=== PATIENT | male | born 1995 | race Caucasian/White ===

== ENCOUNTER 2022-10-17 14:30 | Outpatient (RCR) | payer OTHER, SELFPAY | END 2022-12-19 11:08 | disposition home or self-care (01) | PROVIDERS: PCP Surgery; Visit Provider Orthopaedic Surgery | DX: M25.531 Pain in right wrist (principal); Z51.89 Encounter for other specified aftercare | CPT/HCPCS: 87635; 97033; 97035; 97110; 97140; 97165; 97535; 97760; X5282 ==

== ENCOUNTER 2022-12-13 15:04 | Emergency (ER) | payer OTHER, SELFPAY ==
[2022-12-13 15:38] VITALS: BP 128/87; PULSE 100; RESP 28; TEMP 37.4; O2SAT 95; BMI 39.6
[2022-12-13 16:36] LABS: PCR FLU A Negative PCR FLU A (Negative); PCR FLU B Negative PCR FLU B (Negative); PCR RSV Negative PCR RSV (Negative); SARS PCR* Negative SARS-CoV-2 (Negative)
--- NOTE | 2022-12-13 18:15 | ED.GENADULT ---
HPI - General Adult General Time Seen by Provider: 18:15 Date Seen: 12/13/22 Chief complaint: Cough Stated complaint: Cough, ear pain, not getting better Time Seen by Provider: 12/13/22 18:11 Source: patient and RN notes reviewed Mode of arrival: ambulatory Limitations: no limitations History of Present Illness HPI narrative: Patient is a 27-year-old male coming in with concern of coughing. He does not believe he has had fevers with this. He is having spells of coughing the point where he feels like he cannot catch his breath. Sometimes it is productive. His coughing is not always bad. He has had some headache, some postnasal drainage. His right ear feels like there is some pressure on it, crackles sometimes. He did have a triple swab done and I am able to tell him that is negative. He has no history of asthma. Patient started with symptoms on Thursday and feels like he is progressing, today is Thursday. Related Data Allergies Allergy/AdvReac Type Severity Reaction Status Date / Time No Known Drug Allergies Allergy Verified 12/13/22 15:37 Review of Systems Status of ROS: Reports: 6 or more systems reviewed and unremarkable except as noted in History and below PFSH PFSH Social History Smoking Status: Former smoker Do you use any of these nicotine containing products: None Second hand tobacco smoke exposure: Yes How often do you have a drink containing alcohol: 2-4 times a month How many standard drinks containing alcohol do you have on a typical day: 1 or 2 How often do you have six or more drinks on one occasion: Never AUDIT-C Alcohol total score: 2 Non-prescribed substance use: denies use service: No Exam Const: Vital Signs, click to edit/add: Vital Signs - 24 hr 12/13/22 15:38 Temperature 99.4 F Pulse Rate [Pulse Oximeter] 100 Respiratory Rate 28 H Blood Pressure [Ri ght Upper Arm] 128/87 Pulse Oximetry 95 Oxygen Delivery Me thod Room Air Documenting provider has reviewed patient's vital signs: yes Common normals: no apparent distress, oriented x3, no limitations, healthy appearing, alert and well nourished General appearance: cooperative, comfortable, well kempt and well developed HENMT: Common normals: normocephalic, head/scalp atraumatic, hearing grossly normal bilaterally, external ears normal, EAC's normal, TM's normal bilaterally, external nose normal, nasal mucous membranes and turbinates normal, moist oral mucous membranes, oropharynx normal, dentition normal and gingiva normal Head and scalp: normocephalic and atraumatic Nose: external nose normal and nasal mucous membranes and turbinates normal External ear: external ears normal External auditory canal: EAC's normal Tympanic membrane: TM's normal bilaterally Eye: Common normals: PERRL, EOMs intact bilaterally, conjunctivae normal and no scleral icterus Conjunctiva: conjunctiva(e) normal Pupil: PERRL Neck & C-Spine: Common normals: full ROM, no lymphadenopathy, supple, no meningeal signs and no JVD Resp: Common normals: normal respiratory effort, no retractions, no use of accessory muscles and clear to auscultation bilaterally Auscultation: clear to auscultation bilaterally Cardio: Common normals: no JVD, regular rate, regular rhythm, S1 normal heart sound, S2 normal heart sound, no gallops, no clicks and no murmurs Rate: regular rate Rhythm: regular rhythm Heart sounds: S1 normal and S2 normal Neuro: Common normals: oriented x3 Sensorium/orientation: alert Meningeal signs: no meningeal signs Psych: Appearance: well kempt Course Course Hospital Course: Reviewed with patient that with the negative triple swab, symptoms just starting this week, believe that this is more likely to be viral. Discussed options of proceeding with a CBC and a chest x-ray to further work this up. He would like to do that. Vital Signs Vital signs: Initial Vital Signs Temperature 99.4 F 12/13/22 15:38 Temperature Source Temporal Artery Scan 12/13/22 15:38 Pulse Rate 100 12/13/22 15:38 Pulse Rhythm 12/13/22 15:38 Respiratory Rate 28 H 12/13/22 15:38 Blood Pressure 128/87 12/13/22 15:38 Blood Pressure Mean 100 12/13/22 15:38 Blood Pressure Position Sitting 12/13/22 15:38 Pulse Oximetry 95 12/13/22 15:38 Oxygen Delivery Method 12/13/22 15:38 Vital Signs Temperature 99.4 F 12/13/22 15:38 Pulse Rate 100 12/13/22 15:38 Respiratory Rate 28 H 12/13/22 15:38 Blood Pressure 128/87 12/13/22 15:38 Pulse Oximetry 95 12/13/22 15:38 Oxygen Delivery Method 12/13/22 15:38 Temperature 99.4 F 12/13/22 15:38 Pulse Rate 100 12/13/22 15:38 Respiratory Rate 28 H 12/13/22 15:38 Blood Pressure 128/87 12/13/22 15:38 Pulse Oximetry 95 12/13/22 15:38 Oxygen Delivery Method 12/13/22 15:38 Medical Decision Making Lab Data Lab results reviewed: Yes I reviewed the patient's lab results Labs: Lab Results 12/13/22 12/13/22 Range/Units 15:46 18:30 WBC 4.65 (4.50-11.00) K/uL RBC 4.90 (4.30-5.90) m/uL Hgb 14.5 (13.5-17.5) gm/dL Hct 43.4 (37.0-53.0) % MCV 89 (80-100) fL MCH 30 (26-34) pg MCHC 33 (32-36) gm/dL RDW Coeff of Sidra 13.7 (11.5-15.5) % Plt Count 267 (140-440) K/uL Neut % (Auto) 56.5 (42.0-72.0) % Lymph % (Auto) 26.7 (20-44) % [place] % (Auto) 9.2 (0.0-11.0) % Eos % (Auto) 6.5 (0.0-7.0) % Baso % (Auto) 0.9 (0.0-3.0) % Neut # (Auto) 2.63 (1.7-7.0) K/uL Lymph # (Auto) 1.24 (0.90-2.90) K/uL Socorro # (Auto) 0.40 (0.00-0.90) K/UL Eos # (Auto) 0.30 (0.00-0.50) K/uL Baso # (Auto) 0.04 (0.00-0.30) K/uL SARS-CoV-2 (PCR) Negative SARS-CoV-2 (Negative) Influenza Type A (PCR) Negative PCR FLU A (Negative) Influenza Type B (PCR) Negative PCR FLU B (Negative) RSV (PCR) Negative PCR RSV (Negative) Imaging Data Chest x-ray: Attestation: I have reviewed the pertinent imaging results. Radiologist's impression: Patient: BOBBY ROMANO Facility:?[facility] Patient ID:?[id number] Site Patient ID:?[id number]. Site :?[id number] Study:?XRay Chest -12/13/2022 6:40:41 PM Ordering Physician:Martín Pollard Final Report: HISTORY: Cough. TECHNIQUE: Two-view chest. COMPARISON: None. FINDINGS: Patchy indistinct it opacities in the left lung base. Prominent interstitium bilaterally. No pleural effusion or pneumothorax. Pulmonary vasculature and cardiomediastinal silhouette are unremarkable. IMPRESSION: Patchy left basilar opacities from atelectasis or airspace disease such as pneumonia. Dictated by James Morales MD @ 12/13/2022 6:56:51 PM Critical Care Time Critical Care Time Critical Care Time: No Discharge Plan Discharge Clinical Impression: Community acquired pneumonia Patient Disposition: Home, Self-Care Condition: Stable Instructions: Community Acquired Pneumonia (ED) Additional Instructions: Start oral antibiotics tonight and take as prescribed. I have written for doxycycline, you are to take 1 pill twice a day for 10 days. Can use [id number] cough and cold medicines as needed to help with symptom control. If you are not improving over the next week, feel you are worsening at any point or becoming more ill, please seek re-evaluation. Activity Level: Activity as Tolerated Follow Up/Referrals: Mark Olivo MD [Primary Care Provider] - Stand Alone Forms: [employer] Info Instructions
--- NOTE | 2022-12-13 18:20 | CRLHL7_ITS ---
For Patients: As a result of the Century Cures Act, medical imaging exams and procedure reports are released immediately into your electronic medical record. You may view this report before your referring provider. If you have questions, please contact your health care provider. HISTORY: Cough. TECHNIQUE: Two-view chest. COMPARISON: None. FINDINGS: Patchy indistinct it opacities in the left lung base. Prominent interstitium bilaterally. No pleural effusion or pneumothorax. Pulmonary vasculature and cardiomediastinal silhouette are unremarkable. IMPRESSION: Patchy left basilar opacities from atelectasis or airspace disease such as pneumonia. Dictated by James Morales MD @ 12/13/2022 6:56:51 PM (Electronically Signed)
[2022-12-13 18:41] LABS: Basophils Absolute Auto 0.04 K/uL (0.00-0.30); Basophils Percent Auto 0.9 % (0.0-3.0); Eosinophils Percent Auto 6.5 % (0.0-7.0); Hematocrit 43.4 % (37.0-53.0); Hemoglobin* 14.5 gm/dL (13.5-17.5); Immature Granulocytes Abs Auto 0.01 K/uL (0.00-0.30); Immature Granulocytes Pct Auto 0.2 %; Lymphocytes Absolute Auto 1.24 K/uL (0.90-2.90); Lymphocytes Percent Auto 26.7 % (20-44); Mean Corpuscular HGB Conc 33 gm/dL (32-36); Mean Corpuscular Hemoglobin 30 pg (26-34); Mean Corpuscular Volume 89 fL (80-100); Monocytes Percent Auto 9.2 % (0.0-11.0); Neutrophils Absolute Auto 2.63 K/uL (1.7-7.0); Neutrophils Percent Auto 56.5 % (42.0-72.0); Platelet Count* 267 K/uL (140-440); RDW Coefficient of Variation % 13.7 % (11.5-15.5); White Blood Count* 4.65 K/uL (4.50-11.00)
[2022-12-13 18:43] LABS: Slide Review Reflex No
[2022-12-13 19:18] VITALS: BP 128/87; PULSE 100; RESP 28; TEMP 37.4
== END 2022-12-13 19:18 | disposition home or self-care (01) ==
PROVIDERS: Emergency Provider Family Medicine; PCP Surgery
DX: J18.9 Pneumonia, unspecified organism (principal)
CPT/HCPCS: 36415; 71046; 85025; 87502; 87634; 87635; 99283; 99284

== ENCOUNTER 2023-01-21 13:21 | Emergency (ER) | payer OTHER, SELFPAY ==
--- NOTE | 2023-01-21 13:22 | CRLHL7_ITS ---
For Patients: As a result of the Cures Act, medical imaging exams and procedure reports are released immediately into your electronic medical record. You may view this report before your referring provider. If you have questions, please contact your health care provider. Indication: Pain Technique: Two views Comparison: None Findings: Bones: Alignment is normal. No fractures or bone lesions. Joint spaces: Unremarkable. Soft tissues: Lateral soft tissue swelling. Dictated by Riki Correa MD @ 01/21/2023 2:36:51 PM (Electronically Signed)
[2023-01-21 13:23] VITALS: BP 143/87; PULSE 77; RESP 18; TEMP 36.1; O2SAT 98; BMI 36.9
--- NOTE | 2023-01-21 13:31 | ED.GENADULT ---
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 He has developed some pain in his ankle and swelling. He does not recall an injury or trauma. He does stand on his feet quite a bit. He has had no calf pain or leg pain, no bleeding or clotting problems. He has history of sleep apnea but otherwise is quite healthy. She denies fever chills cough chest pain breathing issue. Related Data Home Medications Medication Instructions Recorded Confirmed No Known Home Medications 01/21/23 01/21/23 Allergies Allergy/AdvReac Type Severity Reaction Status Date / Time No Known Drug Allergies Allergy Unverified 01/21/23 13:15 Review of Systems Status of ROS: Reports: 6 or more systems reviewed and unremarkable except as noted in History and below PFSH PFS Social History Smoking Status: Former smoker Do you use any of these nicotine containing products: None Second hand tobacco smoke exposure: Yes How often do you have a drink containing alcohol: 2-4 times a month How many standard drinks containing alcohol do you have on a typical day: 1 or 2 How often do you have six or more drinks on one occasion: Never AUDIT-C Alcohol total score: 2 Non-prescribed substance use: denies use service: No Exam Narrative: Exam Narrative: Objective: Vital signs unremarkable PARRISH's no apparent distress, he is his usual jovial self. Pulses regular Right lower extremity shows some mild soft tissue swelling about the ankle, he has got a little bit of tenderness over his anterior talofibular ligament laterally. There is no calf tenderness or swelling, no edema in his calf or ankle other than swelling over his lateral malleolus malleolus, he has no medial malleolar tenderness. No open wounds, no bruising, no distal CMS issues. Const: Vital Signs, click to edit/add: Vital Signs - 24 hr 01/21/23 13:23 Temperature 96.9 F L Pulse Rate [Pulse Oximeter] 77 Respiratory Rate 18 Blood Pressure [Ri ght Upper Arm] 143/87 H Pulse Oximetry 98 Oxygen Delivery Me thod Room Air Course Vital Signs Vital signs: Initial Vital Signs Temperature 96.9 F L 01/21/23 13:23 Temperature Source Temporal Artery Scan 01/21/23 13:23 Pulse Rate 77 01/21/23 13:23 Pulse Rhythm Regular 01/21/23 13:23 Pulse Strength 3+ Normal 01/21/23 13:23 Respiratory Rate 18 01/21/23 13:23 Blood Pressure 143/87 H 01/21/23 13:23 Blood Pressure Mean 105 01/21/23 13:23 Blood Pressure Position Semi-Fowlers 01/21/23 13:23 Pulse Oximetry 98 01/21/23 13:23 Oxygen Delivery Method Room Air 01/21/23 13:23 Vital Signs Temperature 96.9 F L 01/21/23 13:23 Pulse Rate 77 01/21/23 13:23 Respiratory Rate 18 01/21/23 13:23 Blood Pressure 143/87 H 01/21/23 13:23 Pulse Oximetry 98 01/21/23 13:23 Oxygen Delivery Method Room Air 01/21/23 13:23 Temperature 96.9 F L 01/21/23 13:23 Pulse Rate 77 01/21/23 13:23 Respiratory Rate 18 01/21/23 13:23 Blood Pressure 143/87 H 01/21/23 13:23 Pulse Oximetry 98 01/21/23 13:23 Oxygen Delivery Method Room Air 01/21/23 13:23 Medical Decision Making MDM Narrative Medical decision making narrative: 27-year-old white male with right ankle tenderness and swelling consistent with overuse type injury or inflammation. He has no history of a significant injury. It does not appear like a gouty flare as there is no warmth erythema. I suspect he may have an overuse injury or simply tweaked his ankle and had some swelling and now it has persisted. Would recommend to be off his feet for the next few days will write a note for work that he should be off until next Thursday, gel splint, at icing elevation and ibuprofen or Aleve as needed. Follow up with primary care in the next 3-4 days as needed, certainly sooner if changes or concerns return to ED. he has mom were comfortable plan Discharge Plan Discharge Clinical Impression: Acute ankle pain Patient Disposition: Home w/ Parent or Adult Condition: Stable Additional Instructions: Recommend an ankle splint, icing on a regular basis over the next couple of days, light activity, recommend off work until next Thursday. Advil or Aleve as needed for discomfort and swelling. Follow-up with primary care next week if not improving, return to ED sooner worsening or concerns Activity Level: Light activity Discharge Diet: Regular Prescriptions: No Action No Known Home Medications Follow Up/Referrals: Mark Olivo MD [Primary Care Provider] - Stand Alone Forms: [employer] Info Instructions
== END 2023-01-21 14:07 | disposition home or self-care (01) ==
LOC: ED 13:49
PROVIDERS: Emergency Provider Family Medicine; PCP Surgery
DX: M25.571 Pain in right ankle and joints of right foot (principal); M70.871 Other soft tissue disorders related to use, overuse and pressure, right ankle and foot
CPT/HCPCS: 73600; 99283

== ENCOUNTER 2025-05-06 21:42 | Emergency (ER) | payer OTHER, SELFPAY ==
--- OUTSIDE RECORDS SUMMARY | 2025-05-06 21:47 | XMS_ITS | Clinical Summary ---
Author Organization [facility] Address [address] [place] [id number] Care Team Providers Care Director Acute Name Role Phone Mark Olivo MD Primary Care Provider [phone] Juancarlos Kelly MD Unavailable Mayi Rios Unavailable [phone] Unavailable Allergies Active Allergy Reactions Criticality Noted Date Comments Hvcfxdsec-Rxx-Ty-Karlos taminophen Throat Swelling/Closing 11/03/2011 Generic nyquil, swollen uvula Medications BiPapIndication s:PRAMOD (obstructive sleep apnea) BIPAP machine for home use at pressure: 11/7 S , nasal mask x1/3month with nasal pillows x 2/mo 1 Each 11 08/18/2022 Active CPAPIndications :PRAMOD (obstructive sleep apnea) CPAP machine for home use at pressure 8cmw, nasal mask x1/3month with nasal cushion x2/mo 1 Each 11 11/11/2022 Active Active Problems Problem Noted Date Diagnosed Date History of wrist fracture 09/19/2022 Right DRUJ pain 09/19/2022 PRAMOD 01/12/2017 AHI-34 01/26/2017 Overview (01/26/2017): centrals were > 5 / hr Central sleep apnea- 01/12/2017 RENEE- 15 7 Tonsillar hypertrophy 01/26/2017 Encounters Date Type Department Care Team Description 04/28/2025 8:30 AM CDT Office Visit [facility] [address] [place], [place] [id number] Juancarlos Kelly MD Sleep Follow-up 04/28/2025 Travel from Last 3 Months Immunizations Immunization Administration Dates Next Due AMB Influenza, IIV4 PF (=>6 mos Flulaval,Fluzone Fluarix)(Flu Clinic Only) 08/18/2018 COVID-19 vaccine (DAQRI NTech 30mcg/0.3mL) PF, MDV 10/30/2020,10/10/2020 DTP-HIB 05/06/1995, 4,1993,09/04 DTaP 08/01/1999 Hepatitis A (Peds) 06/13/2009 Hepatitis B (Peds) 08/20/1997,11/25/1995, 995 Hepatitis B, Unspecified 11/25/1995 Influenza RIV4 (Age 18+ Year s) PRESERV FREE 07/20/2019 Influenza Virus, Unspecified 07/27/2018,08/19/20 15 Influenza, IIV3 (Age 6-35 mos) 07/25/2020 Influenza, IIV3 (Age >=3 years) 08/04/2024,09/18 Influenza, IIV4 07/14/2023, 2,08/05/2017,08/28,09/04/2015 Influenza, IIV4 (=>6mos) MDV 07/17/2021 MENINGOCOCCAL VACCINE 2 VIAL 2MO-55YO (MENVEO) 06/09/2014 MMR 02/24/2001,05/06/1995 Meningococcal Vaccine (Menactra) 06/13/2009 Oral Polio Vaccine 08/01/1999, 5,1993,09/04 Td (Age >=7 Years) 05/26/2005 Td, Preservative Free (age >= 7 Years) 5 Tdap 01/08/2022,11/03/2011 Family History Medical History Relation Name Comments Cancer-breast Maternal Grandmother Cancer Paternal Grandfather Cancer-colon No Family History Relation Name Status Comments Maternal Grandmother Paternal Grandfather Social History Tobacco Use Types Packs/Day Years Used Date Smoking Tobacco: Every Day Cigarettes 0.5 2 Smokeless Tobacco: Never Tobacco Cessation:Ready to Q uit: Not Asked; Counseling Given: Not Answered Alcohol Use Standard Drinks/Week Comments Yes 0 (1 standard drink = 0.6 oz pur e alcohol) lightly PHQ-2 Answer Date Recorded PHQ-2 TOTAL SCORE 0 01/16/2025 Social Connections Answer Date Recorded Do you often feel lonely or isolated from those around you? 0 01/16/2025 Alcohol Use Answer Date Recorded How often do you have a drink containing alcohol ? 1 08/14/2022 How many drinks containing a lcohol do you have on a typical day when you are drinking? 0 08/14/2022 How often do you have five or more drinks on one occasion? 1 08/14/2022 Financial Resource Strain Answer Date R ecorded Difficulty of Paying Living Expenses 3 01/16/2025 Difficulty of Paying Living Expenses Not on file 01/16/2025 Food Insecurity Answer Date Recorded Do you worry your food will run out before you are able to buy more? 1 01/16/2025 Transportation Needs Answer Date Record ed Does lack of transportation keep you from medica l appointments? 1 01/16/2025 Does lack of transportation keep you from work, meetings or getting things that you need? 1 01/16/2025 Housing Stability Answer Date Recorded What is your housing situation today? 1 01/16/2025 Utilities Answer Date Recorded Do you have trouble paying f or utilities (for example, heat, electricity, water, phone)? 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 Gender Identity Not on file Sexual Orientation Not on file Obstetrics History Last Filed Vital Signs Vital Sign Reading Time Taken Comments Blood Pressure 132/87 04/28/2025 8:30 AM CDT Pulse 63 04/28/2025 8:30 AM CDT Temperature 37.3 C (99.2 F) 01/08/2022 8:53 AM CDT Respiratory Rate 14 04/02/2017 12:52 PM CDT Oxygen Saturation 99% 04/28/2025 8:30 AM CDT Inhaled Oxygen Concentration - - Weight 130.2 kg (287 lb) 04/28/2025 8:30 AM CDT Height 185.4 cm (6' 1) 04/28/2025 8:30 AM CDT Body Mass Index 37.87 04/28/2025 8:30 AM CDT Plan of Treatment Upcoming Encounters Date Type Department Care Team (Late st Contact Info) Description 05/29/2025 2:15 PM CDT Nurse/Clinic Staff Only [facility] [address] [place] [address] 05/30/2025 8:30 AM CDT Nurse/Clinic Staff Only [facility] [address] [place] [address] 06/02/2025 9:00 AM CDT Telemedicine [address] [phone] Mayi Rios PA [address] [place] [phone] 06/06/2025 9:00 AM CDT Telemedicine [address] [phone] [address] [address] 06/12/2025 8:00 AM CDT Office Visit [facility] [address] [place] [address] Juancarlos Kelly MD [address] [place] [address] Health Maintenance Due Date Last Done Comments Pneumococcal series for age 6-49 (1 of 2 - PCV) 2012 COVID-19 vaccine series ( season) 2024 07/17/2021, 10/30/2020, 10/10/2020 Influenza Vaccine (#1) 2025 , 07/14/2023, 07/16/2022, Additional history exists Depression screening for age 12+ 01/16/2026 01/16/2025, 09/08/2023, 08/18/2022, Additional history exists BMI (ht and wt on same day) for age 18+ 04/28/2026 04/28/2025, 01/16/2025, 09/08/2023, Additional history exists Tetanus booster 01/09/2032 01/08/2022, 10/19, 05/26/2005, Additional history exists Hepatitis B series for 19+ Completed 08/20, 11/25/1995, 11/25/1995, Additional history exists HIV for age 15-65 Completed 08/14/2022 Hepatitis C screening for ag e 18-79 Completed 08/14/2022 Procedures Procedure Name Priority Date/Time Associated Diagnosis Comments ANTI HIV 1/2 Routine 08/14/2022 12:32 PM CDT Screen for STD (sexually transmitted disease) ANTI HCV Routine 08/14/2022 12:32 PM CDT Need for hepatitis C screening test from Last 3 Months or Most Recently Relevant to Health Maintenance Results * ANTI HCV (08/14/2022 12:32 PM CDT) Pathologist [facility] HEPATITIS C ANTIBODY Non-React ruslan Non-React ruslan 08/16/2022 6:38 PM CDT [facility] Comment:Antibodies to HCV no t detected; does not exclude the possibility of exposure to HCV. Blood BLOOD SPECIMEN / Unknown Venipuncture / Unknown 08/14/2022 12:32 PM CDT 08/14/2022 12:36 PM CDT us Mark Olivo MD SEND OUTS Final Resu lt [facility] [address] [place] [address], * ANTI HIV 1/2 (08/14/2022 12:32 PM CDT) HIV-1/HIV-2 ANTIBODY Non-Reacti ve Non-Reacti ve 08/16/2022 6:35 PM CDT [facility] Comment:HIV-1 p24 and HIV-1/ HIV-2 Ab not detected. Blood BLOOD SPECIMEN / Unknown Venipuncture / Unknown 08/14/2022 12:32 PM CDT 08/14/2022 12:36 PM CDT us Mark Olivo MD SEND OUTS Final Resu lt [facility] [address] [place] [address], [place] from Last 3 Months or Most Recently Relevant to Health Maintenance Insurance [id number] [facility] Care Teams Director Acute Relationship Specialty Start Date End Date Mark Olivo MD [address] [place] [address] PCP - General Family Practice 10/02/15 Juancarlos Kelly MD [address] [place] [address] Sleep Medicine 07/29/22 Mayi Rios PA [address] [place] [address] Physician Information Tech 05/03/[address] [place] [address] Steel Wheel Engraver 05/03/25
[2025-05-06 21:56] VITALS: BP 119/67; PULSE 116; RESP 16; TEMP 37.6; O2SAT 96; BMI 36.2
--- NOTE | 2025-05-06 22:07 | ED.GENADULT ---
HPI - General Adult General Chief complaint: Sore Throat Stated complaint: sore throat Time Seen by Provider: 05/06/25 22:02 History of Present Illness HPI narrative: Patient is a 29-year-old gentleman who comes in today with a 2 day history of pharyngitis. He lives with his sister who also has strep throat. Patient has had no fevers no chills no night sweats no cough no other ENT symptoms. No weakness. Patient is able to eat and drink without any difficulty. Patient otherwise very healthy. Related Data Allergies Allergy/AdvReac Type Severity Reaction Status Date / Time No Known Drug Allergies Allergy Verified 08/10/23 14:43 Review of Systems Status of ROS: Reports: 10 or more systems reviewed and unremarkable except as noted in History and below PFSH PFSH Social History Smoking Status: Former smoker Do you use any of these nicotine containing products: None Second hand tobacco smoke exposure: Yes How often do you have a drink containing alcohol: 2-4 times a month How many standard drinks containing alcohol do you have on a typical day: 1 or 2 How often do you have six or more drinks on one occasion: Never AUDIT-C Alcohol total score: 2 Non-prescribed substance use: denies use service: No Exam Narrative: Exam Narrative: EXAM GENERAL: Patient appears comfortable and well. EYES: No scleral icterus. ENT: Tympanic membranes and oropharynx normal. THYROID: Significant tonsillar enlargement. I do see exudate but I do not see midline shift. Is anterior cervical lymphadenopathy as well. LYMPH: No supraclavicular or cervical lymphadenopathy. SKIN: Visible skin seen during exam normal or with benign process only. EXT: No dependent lower extremity pedal edema. HEART: Regular rate and rhythm with no murmurs, rubs, or gallops. LUNGS: Clear to auscultation bilaterally with no crackles or wheezes. ABD: Soft, non tender, non distended. PSYCH: Good eye contact, speech is not pressured. Const: Vital Signs, click to edit/add: Vital Signs - 24 hr 05/06/25 21:56 Temperature 99.6 F Pulse Rate [Left P ulse Oximeter] 116 H Respiratory Rate 16 Blood Pressure [Ri ght Upper Arm] 119/67 Pulse Oximetry 96 Oxygen Delivery Me thod Room Air Course Course ED Course: Patient seen examined. Due to the hospital contact with strep throat I did treated with amoxicillin and recommended Tylenol Motrin rest and fluids. He was educated that if his symptoms persist or worsen he may need a CT of his soft tissues neck to rule out abscess. Vital Signs Vital signs: Initial Vital Signs Temperature 99.6 F 05/06/25 21:56 Temperature Source Temporal Artery Scan 05/06/25 21:56 Pulse Rate 116 H 05/06/25 21:56 Pulse Rhythm Regular 05/06/25 21:56 Respiratory Rate 16 05/06/25 21:56 Blood Pressure 119/67 05/06/25 21:56 Blood Pressure Mean 84 05/06/25 21:56 Blood Pressure Position Sitting 05/06/25 21:56 Pulse Oximetry 96 05/06/25 21:56 Oxygen Delivery Method Room Air 05/06/25 21:56 Vital Signs Temperature 99.6 F 05/06/25 21:56 Pulse Rate 116 H 05/06/25 21:56 Respiratory Rate 16 05/06/25 21:56 Blood Pressure 119/67 05/06/25 21:56 Pulse Oximetry 96 05/06/25 21:56 Oxygen Delivery Method Room Air 05/06/25 21:56 Temperature 99.6 F 05/06/25 21:56 Pulse Rate 116 H 05/06/25 21:56 Respiratory Rate 16 05/06/25 21:56 Blood Pressure 119/67 05/06/25 21:56 Pulse Oximetry 96 05/06/25 21:56 Oxygen Delivery Method Room Air 05/06/25 21:56 Discharge Plan Discharge Clinical Impression: Strep throat Patient Disposition: Home, Self-Care Condition: Stable Instructions: Strep Throat (ED) Additional Instructions: Amoxicillin as directed Tylenol 650 4 times a day as needed for fever and pain Ibuprofen 600 4 times a day as needed for fever and pain Drink plenty of fluids Follow-up as needed. Activity Level: No Restrictions Discharge Diet: Regular Follow Up/Referrals: Mark Olivo MD [Primary Care Provider, Family Practice] Stand Alone Forms: MyHealth Info Instructions
--- OUTSIDE RECORDS SUMMARY | 2025-05-06 22:46 | XMS_ITS | CCD ---
Author Organization Unknown Care Team Providers Care Cement Paver Name Role Phone [place], [place] Primary Care Provider Unava ilable Unavailable Chronic Care Management Unavaila ble Summary Purpose [employer] Insurance Providers Payer name Policy type / Coverage type Covered republican ID Effective Begin Date Effective End Date [employer] ([employer]) Commercial Insurance [id number] Unknown Unknown Family History Family History data not found Medication Administered No Medication Administered data Reason For Visit No Reason For Visit data
--- OUTSIDE RECORDS SUMMARY | 2025-05-06 22:46 | XMS_ITS | CCD ---
Author Organization Unknown Care Team Providers Care Squirrel Man Name Role Phone Automobile Appraiser, [place] Primary Care Provider Unava ilable Unavailable Chronic Care Management Unavaila ble Summary Purpose [employer] Insurance Providers Payer name Policy type / Coverage type Covered democrat ID Effective Begin Date Effective End Date [employer] ([facility]) Commercial Insurance [id number] Unknown Unknown Family History Family History data not found Medication Administered No Medication Administered data Reason For Visit No Reason For Visit data
[2025-05-06 23:00] LABS: Strep A DNA Probe* DETECTED (Not Detectd)
--- OUTSIDE RECORDS SUMMARY | 2025-05-06 23:16 | XMS_ITS | CCD ---
Author Organization Unknown Care Team Providers Care Product Manager Name Role Phone Speed Belt Sander Tender, [place] Primary Care Provider Unava ilable Unavailable Chronic Care Management Unavaila ble Summary Purpose [employer] Insurance Providers Payer name Policy type / Coverage type Covered libertarian ID Effective Begin Date Effective End Date [employer] ([facility]) Commercial Insurance [id number] Unknown Unknown Family History Family History data not found Medication Administered No Medication Administered data Reason For Visit No Reason For Visit data
--- OUTSIDE RECORDS SUMMARY | 2025-05-06 23:16 | XMS_ITS | CCD ---
Author Organization Unknown Care Team Providers Care Denture Laboratory Technician Name Role Phone Machinist Apprentice, [place] Primary Care Provider Unava ilable Unavailable Chronic Care Management Unavaila ble Summary Purpose DataExchange Insurance Providers Payer name Policy type / Coverage type Covered libertarian ID Effective Begin Date Effective End Date [employer] ([facility]) Commercial Insurance [id number] Unknown Unknown Family History Family History data not found Medication Administered No Medication Administered data Reason For Visit No Reason For Visit data
== END 2025-05-06 22:21 | disposition home or self-care (01) ==
LOC: ED 22:14
PROVIDERS: Emergency Provider Internal Medicine; PCP Surgery
DX: J02.0 Streptococcal pharyngitis (principal)
CPT/HCPCS: 87651; 99283

== ENCOUNTER 2025-09-12 15:31 | Emergency (ER) | payer OTHER, SELFPAY ==
--- OUTSIDE RECORDS SUMMARY | 2025-09-12 15:34 | XMS_ITS | Clinical Summary ---
Author Organization [facility] Address [address] [place] [address] Care Team Providers Care Acid Bath Mixer Name Role Phone Mark Oilvo MD Primary Care Provider + [phone] Juancarlos Kelly MD Unavailable Mayi Rios Unavailable [phone] Unavailable [phone] Allergies Active Allergy Reactions Criticality Noted Date Comments Feasvlfsp-Jbr-Hk-Karlos taminophen Throat Swelling/Closing 11/03/2011 Generic nyquil, swollen uvula Medications fluticasone (50 mcg per actuation) nasal solution (FLONASE)Indica tions:PRAMOD (obstructive sleep apnea),Allergic rhinitis, unspecified seasonality, unspecified trigger Inhale 1 Zortman into affected nostril(s) once daily. 16 g 5 Active BIPAPIndication s:PRAMOD (obstructive sleep apnea) BIPAP (E0470) machine for home use at pressure: 14/9cmw, Choice of mask (A7030 or A7034) w/full face cushion (A7031) x1/mo, nasal cushion (A7032) x2/mo, or nasal pillows (A7033) x 2/mo; Length of Need: 99 months; Frequency of use: Daily 1 Each 11 5 Active cholecalciferol (VITAMIN D3) 2,000 unit capsuleIndicati ons:Vitamin D deficiency Take 1 Capsule (2,000 units) by mouth once daily. May substitute tablet. 30 Capsule 5 5 Active cholecalciferol (Vitamin D3) 2,000 unit tablet Take 1 Tablet (2,000 units) by mouth once daily. 08/21/20 25 Discontin ued(*Medi cation adjustmen t) Active Problems Problem Noted Date Diagnosed Date History of wrist fracture 09/19/2022 Right DRUJ pain 09/19/2022 PRAMOD 01/12/2017 AHI-34 01/26/2017 Overview (01/26/2017): centrals were > 5 / hr Central sleep apnea- 01/12/2017 RENEE- 15 7 Tonsillar hypertrophy 01/26/2017 Encounters Date Type Department Care Team Description 08/21/2025 4:00 PM TWISTING FRAME CHANGER Telemedicine [address] [phone] Mayi Rios PA Telehealth (No vitals taken); Weight (MWL follow up) 08/21/2025 Travel 08/04/2025 9:00 AM CDT Telemedicine [address] [address] Medical Nutrition Therapy (MWL.2) 07/05/2025 10:00 AM CDT Office Visit [facility] [address] [place] [address] Leda Toledo [facility] Visit 07/04/2025 4:30 PM CDT Office Visit [facility] [address] [place] [address] Mark Olivo MD Concerns (Testing for metanephrines) 07/04/2025 Travel 06/22/2025 9:00 AM CDT Orders Only [facility] [address] [place] [address] Lab, [facility] 06/21/2025 9:00 AM CDT Telemedicine [address] [address] Medical Nutrition Therapy (MWL.1) 06/21/2025 Travel 06/12/2025 8:00 AM CDT Office Visit [facility] [address] [place] [address] Juancarlos Kelly MD Sleep Follow-up (HST/) 06/12/2025 Travel from Last 3 Months Immunizations Immunization Administration Dates Next Due AMB Influenza, IIV4 PF (=>6 mos Flulaval,Fluzone Fluarix)(Flu Clinic Only) 08/18/2018 COVID-19 vaccine (Adapx NTech 30mcg/0.3mL) PF, MDV 10/30/2020,10/10/2020 DTP-HIB 05/06/1995, 4,1993,09/04 DTaP 08/01/1999 Hepatitis A (Peds) 06/13/2009 Hepatitis B (Adult) 11/25/1995 Hepatitis B (Peds) 08/20/1997,11/25/1995, 995 Hepatitis B, Unspecified 11/25/1995 Influenza RIV4 (Age 18+ Year s) PRESERV FREE 07/20/2019 Influenza Virus, Unspecified 07/27/2018,08/19/20 15 Influenza, IIV3 (Age 6-35 mos) 07/25/2020 Influenza, IIV3 (Age >=3 years) 08/04/20 24,07/17/2021,07/25/2020,07/20,07/27/2018,09/18/2016,09/18/2016 ,08/19/2015 Influenza, IIV4 07/14/2023,,08/05/2017,08/28,09/04/2015 Influenza, IIV4 (=>6mos) MDV 07/17/2021 MENINGOCOCCAL VACCINE 2 VIAL 2MO-55YO (MENVEO) 06/09/2014 MMR 02/24/2001,05/06/1995 Meningococcal Vaccine (Menactra) 06/09/2014,05/20 Oral Polio Vaccine 08/01/1999, 5,1993,09/04 Td (Age >=7 Years) 05/26/2005 Td, Preservative Free (age >= 7 Years) 5 Tdap 01/08/2022,11/03/2011 Family History Medical History Relation Name Comments Cancer-breast Maternal Grandmother Cancer Paternal Grandfather Cancer-colon No Family History Relation Name Status Comments Maternal Grandmother Paternal Grandfather Social History Tobacco Use Types Packs/Day Years Used Date Smoking Tobacco: Former Cigarettes 0.5 2 Smokeless Tobacco: Never Tobacco Cessation:Counseling Given: Not Answered Alcohol Use Standard Drinks/Week [...] on file Legal Sex Male 6:43 AM TWISTING FRAME CHANGER Gender Identity Not on file Sexual Orientation Not on file Obstetrics History Last Filed Vital Signs Vital Sign Reading Time Taken Comments Blood Pressure 127/82 07/04/2025 4:33 PM CDT Pulse 86 07/04/2025 4:33 PM CDT Temperature 37.3 C (99.2 F) 01/08/2022 8:53 AM CDT Respiratory Rate 14 04/02/2017 12:52 PM CDT Oxygen Saturation 100% 07/04/2025 4:33 PM CDT Inhaled Oxygen Concentration - - Weight 117.9 kg (260 lb) 08/21/2025 3:00 PM TWISTING FRAME CHANGER Height 188 cm (6' 2.02) 08/21/2025 3:00 PM TWISTING FRAME CHANGER Body Mass Index 33.37 08/21/2025 3:00 PM TWISTING FRAME CHANGER Plan of Treatment Upcoming Encounters Date Type Department Care Team (Late st Contact Info) Description 09/22/2025 9:00 AM TWISTING FRAME CHANGER Telemedicine [address] [place] [address] Lelia Hastings, RD [address] [place] [address] 11/07/2025 3:00 PM TWISTING FRAME CHANGER Telemedicine [address] [place] [address] Mayi Rios PA [address] [place] [address] Health Maintenance Due Date Last Done Comments HPV series for age 9-45 (1 - 3-dose SCDM series) 2020 Influenza Vaccine (#1) 2025 , 07/14/2023, 07/16/2022, Additional history exists Depression screening for age 12+ 01/16/2026 01/16/2025, 09/08/2023, 08/18/2022, Additional history exists BMI (ht and wt on same day) for age 18+ 08/21/2026 08/21/2025, 08/04/2025, 07/04/2025, Additional history exists Tetanus booster 01/09/2032 01/08/2022, 10/19, 05/26/2005, Additional history exists RSV vaccine for adults or (1 - 1-dose 75+ series) 2068 Hepatitis B series for 19+ Completed 08/20, 11/25/1995, 11/25/1995, Additional history exists HIV for age 15-65 Completed 08/14/2022 Hepatitis C screening for age 18-79 Completed 08/14/2022 Pneumococcal series for age 6-49 Aged Out No longer eligible based on patient's age to complete this topic Procedures Procedure Name Priority Date/Time Associated Diagnosis Comments METANEPHRINES FRACTIONATED PLASMA FREE Routine 07/04/2025 4:59 PM CDT Family history of pheochromocytoma VITAMIN B12 Routine 06/22/2025 9:04 AM CDT Class 2 severe obesity with serious comorbidity and body mass index (BMI) of 36.0 to 36.9 in adult, unspecified obesity type (HC) Encounter for vitamin deficiency screening HEMOGLOBIN A1C Routine 06/22/2025 9:04 AM CDT Class 2 severe obesity with serious comorbidity and body mass index (BMI) of 36.0 to 36.9 in adult, unspecified obesity type (HC) HEMOGLOBIN Routine 06/22/2025 9:04 AM CDT Class 2 severe obesity with serious comorbidity and body mass index (BMI) of 36.0 to 36.9 in adult, unspecified obesity type (HC) COMP METABOLIC PANEL Routine 06/22/2025 9:04 AM CDT Class 2 severe obesity with serious comorbidity and body mass index (BMI) of 36.0 to 36.9 in adult, unspecified obesity type (HC) TSH WITH REFLEX Routine 06/22/2025 9:04 AM CDT Class 2 severe obesity with serious comorbidity and body mass index (BMI) of 36.0 to 36.9 in adult, unspecified obesity type (HC) INSULIN Routine 06/22/2025 9:04 AM CDT Class 2 severe obesity with serious comorbidity and body mass index (BMI) of 36.0 to 36.9 in adult, unspecified obesity type (HC) VITAMIN D 25 (DEFICIENCY) Routine 06/22/2025 9:04 AM CDT Class 2 severe obesity with serious comorbidity and body mass index (BMI) of 36.0 to 36.9 in adult, unspecified obesity type (HC) Encounter for vitamin deficiency screening ANTI HIV 1/2 Routine 08/14/2022 12:32 PM CDT Screen for STD (sexually transmitted disease) ANTI HCV Routine 08/14/2022 12:32 PM CDT Need for hepatitis C screening test from Last 3 Months or Most Recently Relevant to Health Maintenance Results * METANEPHRINES FRACTIONATED PLASMA FREE (07/04/2025 4:59 PM CDT) NORMETANEPHRINE, FREE 113 < OR = 148 pg/mL 07/08/2025 5:23 PM CDT [facility] Comment: This test was developed and its analytical performance characteristics have been determined by [facility]. It has not been cleared or approved by the FDA. This assay has been validated pursuant to the CLIA regulations and is used for clinical purposes. METANEPHRINE, FREE 28 < OR = 57 pg/mL 07/08/2025 5:23 PM CDT [facility] Comment: This test was developed and its analytical performance characteristics have been determined by [facility]. It has not been cleared or approved by the FDA. This assay has been validated pursuant to the CLIA regulations and is used for clinical purposes. TOTAL, FREE ([place] + NMN) 141 < OR = 205 pg/mL 07/08/2025 5:23 PM CDT [facility] Comment: Elevations > 4-fold upper reference range: strongly suggestive of a pheochromocytoma(1). Elevations >1 - 4-fold upper reference range: significant but not diagnostic, may be due to medications or stress. Suggest running 24 hr urine fractionated metanephrines and serum Chromogranin A for confirmation. Reference: (1) Samy Frazier et al, Plasma Chromogranin A or Urine Fractionated Metanephrines Follow-Up Testing Improves the Diagnostic Accuracy of Plasma Fractionated Metanephrines for Pheochromocytoma. The Journal of Clinical Endocrinology and Metabolism 93 (1),91-95, 2008. For additional information, please refer to http://education.IPXI.Krugle/faq/MetFractFree (This link is being provided for informational/educational purposes only.) This test was developed and its analytical performance characteristics have been determined by [facility]. It has not been cleared or approved by the FDA. This assay has been validated pursuant to the CLIA regulations and is used for clinical purposes. Blood BLOOD SPECIMEN / Unknown [facility] / Unknown 07/04/2025 4:59 PM CDT 07/04/2025 4:59 PM CDT Mark Olivo MD SEND OUTS Final Resu lt Performing Organization Address [facility] Co de Phone Number [facility] [address] [address], * (ABNORMAL) HEMOGLOBIN A1C (06/22/2025 9:04 AM CDT) HEMOGLOBIN A1C 6.0(H) <5.7 % 06/23/2025 4:19 AM CDT [facility] Comment: For someone without known diabetes, a hemoglobin A1c value between 5.7% and 6.4% is consistent with prediabetes and should be confirmed with a follow-up test. For someone with known diabetes, a value <7% indicates that their diabetes is well controlled. A1c targets should be individualized based on duration of diabetes, age, comorbid conditions, and other considerations. This assay result is consistent with an increased risk of diabetes. Currently, no consensus exists regarding use of hemoglobin A1c for diagnosis of diabetes for children. Blood BLOOD SPECIMEN / Unknown [facility] / Unknown 06/22/2025 9:04 AM CDT 06/22/2025 9:04 AM CDT Narrative [facility] - 06/23/2025 4:19 AM CDT FASTING:UNKNOWN FASTING: UNKNOWN Mayi OQUENDO CHEMISTRY Final Re sult Performing Organization Address [facility]/ZIP Co de Phone Number [facility] [address] [address], [place] [phone] * TSH WITH REFLEX (06/22/2025 9:04 AM CDT) TSH W/REFLEX TO FT4 1.76 0.40 - 4.50 mIU/L 06/23/2025 6:32 AM CDT [facility] Blood BLOOD SPECIMEN / Unknown [facility] / Unknown 06/22/2025 9:04 AM CDT 06/22/2025 9:04 AM CDT Narrative [facility] - 06/23/2025 6:32 AM CDT FASTING:UNKNOWN FASTING: UNKNOWN us Mayi OQUENDO CHEMISTRY Final Re sult [facility] [address] [address], * (ABNORMAL) VITAMIN D 25 (DEFICIENCY) (06/22/2025 9:04 AM CDT) VITAMIN D,25-OH,TOTAL,IA 27(L) 30 - 100 ng/mL 06/23/2025 6:32 AM CDT [facility] Comment: Vitamin D Status 25-OH Vitamin D: Deficiency: <20 ng/mL Insufficiency: 20 - 29 ng/mL Optimal: > or = 30 ng/mL For 25-OH Vitamin D testing on patients on D2-supplementation and patients for whom quantitation of D2 and D3 fractions is required, the Quest[facility]ure[facility](TM) 25-OH VIT D, (D2,D3), LC/MS/MS is recommended: order code 77432 (patients >2yrs). See Note 1 Note 1 For additional information, please refer to http://education.Vive Unique.Krugle/faq/DHI551 (This link is being provided for informational/ educational purposes only.) Blood BLOOD SPECIMEN / Unknown [facility] / Unknown 06/22/2025 9:04 AM CDT 06/22/2025 9:04 AM CDT Narrative [facility] - 06/23/2025 6:32 AM CDT FASTING:UNKNOWN FASTING: UNKNOWN us Mayi OQUENDO SEND OUTS Final Re sult Performing Organization Address [facility] de Phone Number [facility] [address] [address], * HEMOGLOBIN (06/22/2025 9:04 AM CDT) Pathologist [facility] HEMOGLOBIN 15.3 13.2 - 17.1 g/dL 06/23/2025 3:44 AM CDT [facility] MCV 91.3 80.0 - 100.0 fL 06/23/2025 3:44 AM CDT [facility] Blood BLOOD SPECIMEN / Unknown [facility] / Unknown 06/22/2025 9:04 AM CDT 06/22/2025 9:04 AM CDT Narrative [facility] - 06/23/2025 3:44 AM CDT FASTING:UNKNOWN FASTING: UNKNOWN Mayi OQUENDO HEMATOLOGY Final Re sult Performing Organization Address [facility] Phone Number [facility] [address] [address], * (ABNORMAL) INSULIN (06/22/2025 9:04 AM CDT) [facility] INSULIN 23.7(H) uIU/mL 06/23/2025 3:37 PM CDT [facility] Comment: Reference Range < or = 18.4 Risk: Optimal < or = 18.4 Moderate NA High >18.4 Adult cardiovascular event risk category cut points (optimal, moderate, high) are based on Insulin Reference Interval studies performed at [facility] in 2021. Blood BLOOD SPECIMEN / Unknown [facility] / Unknown 06/22/2025 9:04 AM CDT 06/22/2025 9:04 AM CDT Narrative [facility] - 06/23/2025 3:37 PM CDT FASTING:UNKNOWN FASTING: UNKNOWN Mayi OQUENDO SEND OUTS Final Re sult Performing Organization Address [facility] Co de Phone Number [facility] [address] [address], * VITAMIN B12 (06/22/2025 9:04 AM CDT) [facility] VITAMIN B12 319 200 - 1100 pg/mL 06/23/2025 9:21 AM CDT [facility] Comment: Please Note: Although the reference range for vitamin B12 is 200-1100 pg/mL, it has been reported that between 5 and 10% of patients with values between 200 and 400 pg/mL may experience neuropsychiatric and hematologic abnormalities due to occult B12 deficiency; less than 1% of patients with values above 400 pg/mL will have symptoms. Blood BLOOD SPECIMEN / Unknown [facility] / Unknown 06/22/2025 9:04 AM CDT 06/22/2025 9:04 AM CDT Narrative [facility] - 06/23/2025 9:21 AM CDT FASTING:UNKNOWN FASTING: UNKNOWN Mayi OQUENDO CHEMISTRY Final Re sult [facility] [address] [address], * (ABNORMAL) COMP METABOLIC PANEL (06/22/2025 9:04 AM CDT) [facility] SODIUM 139 135 - 146 mmol/L 06/23/2025 5:28 AM CDT [facility] POTASSIUM 4.3 3.5 - 5.3 mmol/L 06/23/2025 5:28 AM CDT [facility] CHLORIDE 102 98 - 110 mmol/L 06/23/2025 5:28 AM CDT [facility] CARBON DIOXIDE 23 20 - 32 mmol/L 06/23/2025 5:28 AM CDT [facility] GLUCOSE 95 65 - 99 mg/dL 06/23/2025 5:28 AM CDT [facility] Comment: Fasting reference interval CALCIUM 9.8 8.6 - 10.3 mg/dL 06/23/2025 5:28 AM CDT [facility] CREATININE 0.99 0.60 - 1.26 mg/dL 06/23/2025 5:28 AM CDT [facility] BUN/CREATININE RATIO SEE NOTE: 6 - 22 (calc) 06/23/2025 5:28 AM CDT [facility] Comment: Not Reported: BUN and Creatinine are within reference range. EGFR 104 > OR = 60 mL/min/1. 73m2 06/23/2025 5:28 AM CDT [facility] ALBUMIN 4.7 3.6 - 5.1 g/dL 06/23/2025 5:28 AM CDT [facility] PROTEIN, TOTAL 8.0 6.1 - 8.1 g/dL 06/23/2025 5:28 AM CDT [facility] BILIRUBIN, TOTAL 0.8 0.2 - 1.2 mg/dL 06/23/2025 5:28 AM CDT [facility] ALKALINE PHOSPHATASE 82 36 - 130 U/L 06/23/2025 5:28 AM CDT [facility] ALT 52(H) 9 - 46 U/L 06/23/2025 5:28 AM CDT [facility] AST 31 10 - 40 U/L 06/23/2025 5:28 AM CDT [facility] UREA NITROGEN (BUN) 14 7 - 25 mg/dL 06/23/2025 5:28 AM CDT [facility] GLOBULIN 3.3 1.9 - 3.7 g/dL (calc) 06/23/2025 5:28 AM CDT [facility] ALBUMIN/GLOBULI N RATIO 1.4 1.0 - 2.5 (calc) 06/23/2025 5:28 AM CDT [facility] Blood BLOOD SPECIMEN / Unknown [facility] / Unknown 06/22/2025 9:04 AM CDT 06/22/2025 9:04 AM CDT Narrative [facility] - 06/23/2025 5:28 AM CDT FASTING:UNKNOWN FASTING: UNKNOWN us Mayi OQUENDO CHEMISTRY Final Re sult [facility] [address] [place] [address], * ANTI HCV (08/14/2022 12:32 PM CDT) HEPATITIS C ANTIBODY Non-React ruslan Non-React ruslan 08/16/2022 6:38 PM CDT [facility] Comment:Antibodies to HCV no t detected; does not exclude the possibility of exposure to HCV. Blood BLOOD SPECIMEN / Unknown Venipuncture / Unknown 08/14/2022 12:32 PM CDT 08/14/2022 12:36 PM CDT Mark Olivo MD SEND OUTS Final Resu lt Performing Organization Address [facility]/ZIP Co de Phone Number [facility] [address] [place] [address], * ANTI HIV 1/2 (08/14/2022 12:32 PM CDT) HIV-1/HIV-2 ANTIBODY Non-Reacti ve Non-Reacti ve 08/16/2022 6:35 PM CDT [facility] Comment:HIV-1 p24 and HIV-1/ HIV-2 Ab not detected. Blood BLOOD SPECIMEN / Unknown Venipuncture / Unknown 08/14/2022 12:32 PM CDT 08/14/2022 12:36 PM CDT Mark Olivo MD SEND OUTS Final Resu lt Performing Organization Address [facility] Co de Phone Number [facility] [address] [place] [address], from Last 3 Months or Most Recently Relevant to Health Maintenance [place] [address] [facility] [place] [address] Care Teams Acid Bath Mixer Relationship Specialty Start Date End Date Mark Olivo MD [address] [place] [address] PCP - General Family Practice 10/02/15 Juancralos Kelly MD [address] [place] [address] Sleep Medicine 07/29/22 Mayi Rios PA [address] [place] [address] Physician Credit Collections Analyst 05/03/[address] [place] [address] Billboard Installer 05/03/25
--- OUTSIDE RECORDS SUMMARY | 2025-09-12 15:34 | XMS_ITS | CCD ---
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 Role Phone [employer] [place], [place] Primary Care Provider Unava ilable Unavailable Chronic Care Management Unavaila ble Summary Purpose DataExchange Insurance Providers Payer name Policy type / Coverage type Covered constitution party ID Effective Begin Date Effective End Date [employer] ([facility] Commercial Insurance [id number] Unknown Unknown Family History Family History data not found Medication Administered No Medication Administered data Medical Equipment No Medical Equipment data Assessments No Assessment data Reason For Visit No Reason For Visit data Review of Systems No Review of Systems data Physical Exam No Physical Exam data History of Present Illness No History of Present Illness data Advance Directives No Advance Directive data
[2025-09-12 16:02] VITALS: BP 134/86; PULSE 79; RESP 20; TEMP 36.9; O2SAT 98; BMI 32.1
[2025-09-12 18:01] VITALS: BP 150/88; PULSE 70; RESP 16; O2SAT 99
[2025-09-12 18:02] LABS: Glucose, Point-of-Care* 103 mg/dl (60-115)
--- NOTE | 2025-09-12 18:29 | ED_ITS ---
HPI - Syncope General Chief Complaint: Syncope/Fainted Stated Complaint: fainted on thursday Time Seen by Provider: 09/12/25 18:06 History of Present Illness HPI narrative: This 30-year-old male comes in stating that he had a brief loss of consciousness 3 days ago. He states that he has been feeling normal since then. At the time he was playing on a playground and climbing through a tube with some family members when he had loss of consciousness. He recovered completely and states that he has been feeling normal since then. He appears here now 3 days later stating that he wondered what happened at that time. He does not report any other episodes of lightheadedness or loss of consciousness. He arrives here with normal vital signs. Related Data Home Medications ?Medication ?Instructions ?Recorded ?Confirmed No Known Home Medications 09/12/2508/20 Allergies Allergy/AdvReac Type Severity Reaction Status Date / Time No Known Drug Allergies Allergy Verified 08/10/23 14:43 Review of Systems Status of ROS: Reports: 10 or more systems reviewed and unremarkable except as noted in History and below Narrative: Constitutional: No fevers, no weight gain or loss. Eyes: No discharge. No vision changes. HENT: No congestion, no sore throat, no ear pain. Cardiovascular: No chest pain, no palpitations. Respiratory: No shortness of breath, no wheezes, no cough. Gastrointestinal: No abdominal pain, no vomiting, no diarrhea. Genitourinary: No dysuria, no hematuria. Musculoskeletal: Normal range of motion. Skin: No rashes, no pruritis. Neurological: No dizziness, weakness, sensory change, speech change. Endo/Heme/Allergies: No bruising or bleeding. No polydipsia. Pysch: no suicidality, no anxiety, no insomnia. All other systems reviewed and are negative. [facility] Social History Smoking Status: Former smoker Do you use any of these nicotine containing products: None Second hand tobacco smoke exposure: Yes How often do you have a drink containing alcohol: 2-4 times a month How many standard drinks containing alcohol do you have on a typical day: 1 or 2 How often do you have six or more drinks on one occasion: Never AUDIT-C Alcohol total score: 2 Non-prescribed substance use: denies use service: No Exam Narrative: Exam Narrative: Constitutional: Well-developed, well-nourished, no acute distress. HEENT: Normocephalic, atraumatic. Neck: Normal range of motion. Nontender. Supple. Heart: Regular. No murmurs. Normal rate. Intact distal pulses. Lungs: Clear to auscultation. No chest discomfort. No wheezes, rhonchi, or rales. Abdomen: Normal bowel sounds. Nontender. No rebound tenderness. Genitalia: Deferred. Back: No midline tenderness. Normal range of motion. Extremities: Normal range of motion. No injury. Skin: Intact. No rash. Warm. No erythema or pallor. Neurologic: No altered sensation. No weakness. Alert and oriented. Psychiatric: No suicidality. No anxiety or depression. No insomnia. Nursing notes and vitals signs are reviewed. Const: Vital Signs, click to edit/add: Vital Signs - 24 hr 09/12/25 16:02 09/12/25 18:01 Temperature 98.4 F Pulse Rate [Pulse Oximeter] 79 70 Respiratory Rate 20 16 Blood [facility] 134/86 150/88 H Pulse Oximetry 98 99 Oxygen Delivery Me thod Room Air Room Air Course Vital Signs Vital signs: Initial Vital Signs Temperature 98.4 F 09/12/25 16:02 Temperature Source Temporal Artery Scan 09/12/25 16:02 Pulse Rate 79 09/12/25 16:02 Respiratory Rate 20 09/12/25 16:02 Blood Pressure 134/86 09/12/25 16:02 Blood Pressure Mean 102 09/12/25 16:02 Blood Pressure Position Sitting 09/12/25 16:02 Pulse Oximetry 98 09/12/25 16:02 Oxygen Delivery Method Room Air 09/12/25 16:02 Vital Signs Temperature 98.4 F 09/12/25 16:02 Pulse Rate 79 09/12/25 16:02 Respiratory Rate 20 09/12/25 16:02 Blood Pressure 134/86 09/12/25 16:02 Pulse Oximetry 98 09/12/25 16:02 Oxygen Delivery Method Room Air 09/12/25 16:02 Temperature 98.4 F 09/12/25 16:02 Pulse Rate 70 09/12/25 18:01 Respiratory Rate 16 09/12/25 18:01 Blood Pressure 150/88 H 09/12/25 18:01 Pulse Oximetry 99 09/12/25 18:01 Oxygen Delivery Method Room Air 09/12/25 18:01 MDM - Syncope MDM Narrative Medical decision making narrative: This 30-year-old male reports a syncopal episode with prodrome of lightheadedness that occurred 3 days ago. This was an isolated incident and before then in and since then he has been feeling normal. He arrives here with normal vital signs. His exam is normal today. I gave reassurance as to him and stated that we could check labs and in a process of shared decision-making he declined any further studies for now. A glucose point of care was obtained and returns at 103. He is okay to be discharged home. I advised him to return if symptoms are recurrent. Lab Data Labs: Lab Results 09/12/25 Range/Units 16:10 POC Glucose 103 (60-115) mg/dl Discharge Plan Discharge Clinical Impression: Vasovagal syncope Patient Disposition: Home, Self-Care Condition: Improved Additional Instructions: Continue current plans. Follow up with MD as needed or return if symptoms are recurrent. Prescriptions: No Action No Known Home Medications Follow Up/Referrals: Mark Olivo MD [Primary Care Provider, Family Practice] Stand Alone Forms: [employer] Info Instructions
--- OUTSIDE RECORDS SUMMARY | 2025-09-12 18:41 | XMS_ITS | CCD ---
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
--- OUTSIDE RECORDS SUMMARY | 2025-09-12 18:41 | XMS_ITS | CCD ---
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) Commercial Insurance [id number] Unknown Unknown Family History Family History data [...]
== END 2025-09-12 18:48 | disposition home or self-care (01) ==
LOC: ED 18:39
PROVIDERS: Emergency Provider Emergency Medicine Emergency Medical Services; PCP Surgery
DX: R55 Syncope and collapse (principal); R42 Dizziness and giddiness
CPT/HCPCS: 36415; 82947; 99284